=== PATIENT | female | born 1975 | race Caucasian/White ===

== ENCOUNTER 2020-05-13 17:40 | Emergency (ER) | payer BC, OTHER ==
--- NOTE | 2020-05-13 18:00 | EDM.PDOC ---
ED HPI GENERAL MEDICAL PROBLEM - General Chief Complaint: Upper Extremity Injury/Pain Stated Complaint: SEWING NEEDLE IN FINGER Time Seen by Provider: 05/13/20 17:55 Source of Information: Reports: Patient, Old Records ([facility] chart/EMR) History Limitations: Reports: No Limitations - History of Present Illness INITIAL COMMENTS - FREE TEXT/NARRATIVE: The patient was brought to the emergency room via private automobile by her for evaluation 10/30 right second finger pain after she accidentally penetrated this finger with a sewing needle from a sewing machine at about 5 PM this evening. She is not certain whether the needle is still in her finger, although she was able to pull out some sewing thread from the finger prior to arrival. She did clean the area with hydrogen peroxide with no other medications or treatment prior to arrival. She is right-handed however has not injured this anger in the past. No recent history of abdominal pain, heartburn, nausea, diarrhea, melena, gross hematochezia, or any food intolerance, including fatty foods, etc.. The patient also denies any recent fever, cough, wheezing, dyspnea, etc.. Onset: Today, Sudden Onset Date: 05/13/20 Onset Time: 17:00 Duration: Constant Location: Reports: Upper Extremity, Right. 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 Otherwise, full term without complications during pregnancies or deliveries. Musculoskeletal History: Reports: Arthritis, Fracture, Osteoarthritis, Other (See Below) Other Musculoskeletal History: Right calcaneal fracture. Hematologic History: Reports: Anemia, Blood Transfusion(s), Other (See Below) Other Hematologic History: Transfusion of 2 units of packed red blood cells on 12/03/2009 secondary to SAB?. - Past Surgical History Female Surgical History: Reports: Tubal Ligation, Other (See Below) Other Female Surgeries/Procedures: Bilateral tubal ligation in 2012. 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 ED EXAM, GENERAL - Physical Exam Exam: See Below Exam Limited By: No Limitations General Appearance: Alert, WD/WN, No Apparent Distress Head: Atraumatic, Normocephalic Neck: Normal Inspection, Supple, Non-Tender, Full Range of Motion. No: Lymphadenopathy (L), Lymphadenopathy (R), Thyromegaly Respiratory/Chest: No Respiratory Distress, Lungs Clear, Normal Breath Sounds, No Accessory Muscle Use, Chest Non-Tender Cardiovascular: Normal Peripheral Pulses, Regular Rate, Rhythm, No Edema, No Gallop, No JVD, No Murmur, No Rub. No: Gallop/S3, Gallop/S4, Friction Rub Peripheral Pulses: 2+: Radial (L), Radial (R) GI/Abdominal: Normal Bowel Sounds, Soft, Non-Tender, No Organomegaly, No Distention, No Abnormal Bruit, No Mass, Pelvis Stable. No: Guarding (Female) Exam: Deferred Rectal (Female) Exam: Deferred Back Exam: Normal Inspection, Full Range of Motion. No: CVA Tenderness (L), CVA Tenderness (R), Muscle Spasm Extremities: Normal Range of Motion, No Pedal Edema, Normal Capillary Refill. No: Non-Tender (Moderate tenderness over the distal aspect of digit #2 of the right hand with foreign body not visible from the surface), Heber's Sign Neurological: Alert, Oriented, CN II-XII Intact, Normal Cognition, Normal Gait, No Motor/Sensory Deficits Psychiatric: Normal Affect, Normal Mood Skin Exam: Wound/Incision (Puncture wound in the middle aspect of the fingernail of digit #2 of the right hand) Lymphatic: No Adenopathy ED TRAUMA EXTREMITY PROCEDURES - Foreign Body Removal Indication:: Foreign body Consent Obtained: Patient Performing Doctor:: Dez Chen Foreign Body Other Location Comment:: Foreign body through the mid distal phal anx of digit #2 of the right hand with no evidence of fracture. Anesthesia Type: Local (4 cc of 1% lidocaine into the nailbed) Findings:: Only a minimal tip of the needle was noted in the nailbed after complete nail removal, which could not be removed with a curved Mi clamp. A #11 blade scalpel was used to perform a minimal incision with successful removal of the complete thereafter with the Mi clamp. No significant bleeding or need for laceration/nail bed repair. Neosporin to gauze dressing placed by the nurse. Complications:: No Course - Vital Signs Last Recorded V/S: Last Vital Signs Temp 36.1 C 05/13/20 17:41 Pulse 71 05/13/20 17:41 Resp 20 05/13/20 17:41 BP 106/71 05/13/20 17:41 Pulse Ox 99 05/13/20 17:41 Vital Signs - 24 hr 05/13/20 17:41 Temperature [ 36.1 C Temporal] Pulse, 71 Peripheral [ Left Pulse Oximetry] Respiratory 20 Rate Blood Pressure 106/71 [Left Upper Arm ] O2 Sat by Pulse 99 Oximetry - Orders/Labs/Meds Orders: Active Orders 24 hr Category Date Time Status Fingers Second Digit Rt F6 [CR] Stat Exams 05/13/20 18:00 Taken Fingers Second Digit Rt F6 [CR] Stat Exams 05/13/20 18:09 Taken Obtain Past Medical Record [OM.PC] Routine Oth 05/13/20 18:00 Active Labs: None Meds: Medications Discontinued Medications Generic Name Dose Route Start Last Admin Trade Name Freq PRN Reason Stop Dose Admin Amoxicillin/Clavulanate Potassium 1 tab 05/13/20 18:40 05/13/20 18:46 Augmentin 875 Mg/125 Mg PO 05/13/20 18:41 1 tab ONETIME ONE Administration Diphtheria/Tetanus/Acell Pertussis 0.5 ml 05/13/20 18:40 05/13/20 18:43 Boostrix IM 05/13/20 18:41 0.5 ml .ONCE ONE Administration Lidocaine HCl 5 ml 05/13/20 18:08 05/13/20 18:13 Xylocaine-Mpf 1% INJECT 05/13/20 18:09 5 ml ONETIME ONE Administration Neomycin/Polymyxin/Bacitracin 1 each 05/13/20 18:09 05/13/20 18:13 Triple Antibiotic Oint TOP 05/13/20 18:10 1 each ONETIME ONE Administration - Radiology Interpretation Free Text/Narrative:: X-rays of digit #2 of the right hand, 3 views, shows evidence of a needle penetrating into the distal phalanx with no direct evidence of fracture or dislocation. X-rays of digit #2 of the right hand, 3 views after foreign body removal, revealed successful complete removal of the needle with no evidence of fracture or dislocation. Departure - Departure Time of Disposition: 18:55 Disposition: Home, Self-Care 01 Condition: Good Clinical Impression: Foreign body - Discharge Information *PRESCRIPTION DRUG MONITORING PROGRAM REVIEWED*: Not Applicable *COPY OF PRESCRIPTION DRUG MONITORING REPORT IN PATIENT KARSTEN: Not Applicable Prescriptions: Amoxicillin/Potassium Clav [Augmentin 875-125 Tablet] 1 each PO BIDMEALS #20 tablet Referrals: PCP,None [Primary Care Provider] - Forms: ED Department Discharge Additional Instructions: 1. Followup with your regular provider in 10-14 days as directed for reevaluation and possible repeat x-ray of your right second finger. Bring these discharge instructions with you to that visit. 2. Tylenol 650 mg by mouth every 4 hours and/or OTC ibuprofen 2-3 tabs by mouth every 6 hours with food as directed./needed. You may stagger these medications for 48-72 hours only, which essentially means that you are receiving a pain medication about every 2 hours. 3. Diarrhea precautions with Augmentin as discussed 4. Antibacterial soap wash/soak with subsequent antibacterial dressing such as Neosporin, etc. as directed 2 times per day until the wound or laceration site completely heals. Keep the area clean and dry with activity restrictions as discussed. Never use hydrogen peroxide for wound care. 5. Immediately after this visit verify that your cellular telephone's voicemail has been activated and is empty. Also verify that your home telephone's answering machine is operating properly and has space to receive messages. Note that it is sometimes necessary for us to be able to contact you at a later date to discuss your medical care. 6. Please remember that we are ALWAYS here for you and want to answer any questions you may have. Feel free to call the hospital any time and we call you back [facility]. Sepsis Event Note (ED) - Evaluation Sepsis Screening Result: No Definite Risk - Focused Exam Vital Signs: Vital Signs Temp Pulse Resp BP Pulse Ox 05/13/20 17:41 36.1 C 71 20 106/71 99 - Problem List & Annotations (1) Foreign body SNOMED Code(s): 620093178 Code(s): SMY9378 - Status: Acute Priority: High Onset Date: 05/13/20 Annotation/Comment:: Successful foreign body removal as above. Secondary to bone involvement the patient was started on Augmentin in the emergency room with no evidence of fracture, however persistent risk of osteomyelitis. Last TDAP on 11/25/2010, which was confirmed by the emergency room nurse through [facility]. DTaP was updated. Neosporin dressing placed as above. Wound care, activity restrictions, etc. were discussed. - Problem List Review Problem List Initiated/Reviewed/Updated: Yes - My Orders Last 24 Hours: My Active Orders 05/13/20 18:00 Fingers Second Digit Rt F6 [CR] Stat Obtain Past Medical Record [OM.PC] Routine 05/13/20 18:09 Fingers Second Digit Rt F6 [CR] Stat - Assessment/Plan Last 24 Hours: My Active Orders 05/13/20 18:00 Fingers Second Digit Rt F6 [CR] Stat Obtain Past Medical Record [OM.PC] Routine 05/13/20 18:09 Fingers Second Digit Rt F6 [CR] Stat Assessment:: As above Plan: As above. Extensive precautions were given to the patient, who is in agreement with the treatment plan. See Patient Instructions for further treatment and plan.
[2020-05-13] MEDS ORDERED: Bacitracin/Neomycin/Polymyxin B Oint 0.9 GM U/D Packet TOP ONE (18:09)
[2020-05-13] MEDS ORDERED: Amoxicillin/Clavulanate K 875-125 MG Tab PO ONE (18:40)
[2020-05-13] MEDS ORDERED: Diphtheria,Pertussis(Acell),Tetanus Vaccine 0.5 ML Syringe IM ONE (18:40)
== END 2020-05-13 19:00 | disposition home or self-care (01) ==
LOC: LL.ED 17:40
DX: S61.340A Puncture wound with foreign body of right index finger with damage to nail, initial encounter (principal); Z23 Encounter for immunization; W29.2XXA Contact with other powered household machinery, initial encounter
CPT/HCPCS: 10120; 73140-F6; 90471; 90715; 99283-25; A9270-GY; J2001